=== PATIENT | male | born 1970 ===

== ENCOUNTER → 2023-09-07 00:04 | Outpatient (CLI) | payer OTHER, SELFPAY ==
--- NOTE | 2023-09-07 | DI.US_ITS ---
APPROVED REPORT Exam: Exercise Treadmill Patient Location: Out-Patient Room/Bed: Stress Nurse: Gabriela Arriaga RN Ordering Provider:PAUL KUMAR, Contact Number: [phone] BMI: 25.54 Baseline Rhythm: Sinus Rhythm Indications: GARCIA, Medical History Medical History: CAD, HTN, HLD Cardiac Medications: Simvastatin, amlodipine Allergies: NKDA Cardiac Risk Factors: Family hx, HTN, HLD Previous Cardiac Procedures: None Pretest Chest Pain Characteristics: None Exercise History: Physically active Physical Disabilities: None Lung Sounds: Clear to auscultation Heart Sounds: Regular Stress Test Details Test: Exercise stress testing was performed using a Paul protocol. Rest Stress HR Resting HR Supine: 67 bpm Max Heart Rate (APMHR): 168 bpm Resting HR Standin bpm Target HR (85% APMHR): 143 bpm Max HR Achieved: 162 bpm % of APMHR: 96 Recovery HR: 99 bpm HR response to stress: Normal HR response to stress BP Resting BP Supine: 132/82 mmHg Resting BP Standin/82 mmHg Max BP: 186/68 mmHg Recovery BP: 148/66 mmHg BP response to stress: Normal blood pressure response to stress. ECG Resting ECG: Sinus Rhythm Ectopy: None Stress ECG: Sinus Tachycardia ST Change: No significant ST segment changes noted Recovery ECG: Sinus Rhythm Recovery ST Change: No significant ST segment changes noted Clinical Reason for Termination: Target HR Achieved, Fatigue, mod SOB Stress Symptoms: General Fatigue, Mod SOB Exercise duration: 09 min41 sec Highest Stage Reached: Stage 3: 3.4 mph at 14% grade. Exercise capacity: 11.29 METs Angina Score: None Lopes Treadmill Score: 8.6 Rate Pressure Product: [id number] Stress ECG Conclusion 1. Resting electrocardiogram was normal 2. Patient exercised on the Paul protocol and completed a workload of 11.29 METS 3. Normal heart rate and blood pressure response to exercise 4. Patient achieved 96% of maximal predicted heart rate for age 5. There was no electrocardiographic evidence of myocardial ischemia 6. Resting echocardiogram showed an ejection fraction of 60% with normal wall motion. Postexercise e chocardiogram showed improved EF to greater than 75% with augmented contractility of all segments 7. There was no echocardiographic evidence of myocardial ischemia 8. There were no dysrhythmias Lopes Treadmill Score is 8.6 which is Low risk. Stress Test Summary STAGE Time (mins) Speed (mph) Grade (%) HR BP SpO2 SYMPTOMS METS Supine 67 132/82 Standing 67 138/82 1 3 1.7 10 99 145/86 98 4.5 2 6 2.5 12 122 160/82 98 7 3 9 3.4 14 162 Fatigue, mod SOB 10 1 min recovery 146 186/68 98 Fatigue, mod SOB 3 min recovery 114 6 min recovery 99 148/66 98 All symptoms resolved
== END ==
PROVIDERS: Visit Provider Nurse Practitioner Family
DX: R06.00 Dyspnea, unspecified (principal)
CPT/HCPCS: 93350; 93017